=== PATIENT | female | born 1975 | race Caucasian/White ===

== ENCOUNTER 2022-09-29 16:13 | Emergency (ER) | payer MEDICAID, SELFPAY ==
[2022-09-29 16:17] VITALS: BP 143/110; PULSE 81; RESP 18; TEMP 36.6; O2SAT 95; BMI 24.7
--- NOTE | 2022-09-29 16:36 | EDS_ITS ---
HPI HPI - GI History of Present Illness Chief Complaint: Nausea/Vomiting/Diarrhea Informant: patient and spouse/S.O. Abdominal Pain/Flank Pain Onset: Today and Hours Timing: Continuous Current Severity: Moderate Maximum Severity: Moderate Worsened by: Nothing Relieved by: Nothing Nausea/Vomiting/Emesis GI Symptom: Positive for Nausea and Vomiting Onset: Today and Hours Severity: Moderate Diarrhea/Melena/Hematochezia GI Symptom: Positive for Diarrhea; Negative for Melena or Hematochezia Onset: Today Stool Quality: Positive for Watery Severity: Moderate Associated Symptoms Associated Symptoms: Negative for Dysuria, Frequency or Hematuria Narrative Narrative: 47-year-old female Breanna past medical history of than some anxiety. Her and her went out to eat last night. She had salmon. Thinks she may have gotten food poisoning. Ate around 8 PM last night. Today at 11 AM started having nausea, vomiting and diarrhea. did not have the same meal and has no symptoms and did not eat with anyone else to know if anyone else got ill. She denies any recent exposure to anyone's been sick with similar symptoms. States she is only having some mild cramping. No fever but some chills. States the diarrhea is watery. No blood. No dysuria. Her only prior abdominal surgery was for . Prior similar symptoms: No Recent Illness/Hospitalization: No PFSH PFSH Medical History Anxiety delivery delivered H/O thyroid nodule Home Medications buspirone 09/29/22 [History Last Taken Unknown] ondansetron 4 mg disintegrating tablet 4 mg PO Q6H PRN nausea and vomiting #7 tabs 09/29/22 [Rx Last Taken Unknown] Allergy/AdvReac Type Severity Reaction Status Date / Time No Known Allergies Allergy Verified 09/29/22 16:40 Social History Smoking Status: Never smoker ROS ROS ED ROS Narrative Nausea, vomiting and diarrhea. Review of Systems ROS Unobtainable: Denies due to encephalopathy Constitutional Constitutional ED: Reports chills and subjective; Denies fever(s) ENT ENT ED: Denies ear pain Cardiovascular Cardiovascular: Denies chest pain Respiratory/Chest Respiratory/Chest: Denies cough or dyspnea Gastrointestinal Gastrointestinal: Reports diarrhea, nausea and vomiting; Denies abdominal pain, constipation or melena Genitourinary Genitourinary ED: Denies dysuria or hematuria Musculoskeletal Musculoskeletal: Denies arthralgias Integumentary Denies abscess Neurologic Neurologic: Denies headache(s) Psychiatric Psychiatric: Denies anxiety Endocrine Endocrinology: Denies polydipsia Hematologic/Lymphatic Hematologic/Lymphatic: Denies easy bleeding Allergic/Immunologic Allergic/Immunologic ED: Denies mouth swelling or tongue swelling EXAM Physical Exam Narrative Exam Narrative: Well-appearing 47-year-old female. Vital signs are stable her blood pressure is 143/110. H EENT exam dry mucous membranes otherwise unremarkable. Neck nontender no JVD. No lymphadenopathy. Lungs clear to auscultation bilaterally. Heart regular rhythm rate about 80 no murmur. Abdomen soft, nontender, nondistended normal bowel sounds without any peritoneal signs. Right upper and right lower quadrants are unremarkable. No hernia or mass. No distention or signs of obstruction. Moving all 4 extremities. Back nontender. Neurologically she is awake and alert. Const Vital Signs: 09/29/22 16:17 09/29/22 17:28 Temperature 98 F Temperature Source Oral Pulse Rate 81 99 Respiratory Rate 18 16 Blood Pressure 143/110 H 107/72 Blood Pressure Mean 121 83 Pulse Ox 95 98 Oxygen Delivery Method Room Air Room Air Positive well nourished and well developed; Negative for obese, cachectic, contractures or unkempt General Appearance ED: well developed and NAD; Negative for unkempt, cachectic, contractures or pallor Nutritional Appearance: Negative for cachectic or obese HEENT Reports dry mucous membranes; Denies moist mucous membranes normocephalic and atraumatic; Negative for trauma or tenderness Mouth ED: Yes dry mucous membranes Mouth: dry mucous membranes Eyes PERRL and EOMs intact bilaterally General Eye ED: Negative for pale conjunctiva or scleral icterus Neck no lymphadenopathy, supple and no JVD General: Negative for tenderness Carotids: Negative for other Lymph Lymphatic: Negative for other Resp normal respiratory effort and clear to auscultation bilaterally Effort and Inspection: Negative for respiratory distress Auscultation: Negative for rales, rhonchi, wheezes or diminished lung sounds Cardio regular rate, regular rhythm, S1 normal heart sound, S2 normal heart sound and no murmurs Rate: Negative for bradycardia Rhythm: Negative for abnormal rhythm GI non-tender, non-distended and no masses Inspection: Negative for abdominal distention Auscultation: normoactive bowel sounds Palpation: soft; Negative for tender, guarding, rigid, hepatomegaly, splenomegaly, hernia, mass, pulsatile mass or rebound tenderness present Back/Spine no CVA tenderness General Back: Negative for CVA tenderness Cervical Spine: Negative for cervical spine tenderness Thoracic Spine / Upper Back: Negative for thoracic spinal tenderness Lumbar Spine / Lower Back: Negative for lumbar spinal tenderness Coccyx: Negative for other Extremity full ROM General Extremety ED: Negative for edema or tenderness General Extremity: Negative for edema Neuro CN's II-XII intact bilaterally, moves all extremities and no sensory deficits noted Sensorium / Orientation: alert, oriented to person, oriented to place and oriented to time; Negative for orientation impaired, confused, lethargic or stuporous Motor Exam: strength 5/5 throughout; Negative for general weakness or strength abnormal Psych mental status grossly normal and thought process normal Appearance: Negative for unkempt Attitude: No agitated Mood & Affect: Negative for depressed, anxious or tearful Skin no wounds General Skin Exam: Negative for jaundice or pallor Lesions: no lesions Rashes: no rashes Trauma: Negative for abrasion Nails: Negative for discolored MDM MDM MDM Narrative Medical decision making narrative: 47-year-old female with nausea vomiting diarrhea most likely viral gastroenteritis. Possibility of food poisoning. We treated with IV fluids. Zofran for nausea. I will obtain screening labs but her abdomen at this time is very benign. She does not need imaging. Clinically this is not acute cholecystitis nor appendicitis. Again there is no signs of obstruction. Repeat exam at 5:33 PM patient doing much better. Abdomen benign. No right upper or right lower quadrant tenderness. No distention. No peritoneal signs. She is clinically improving. Her blood pressures normal. Her nausea is resolving. She has been able to hold down ice chips. She be given 1/3 L of normal saline and ambulate if she does well she will be discharged home. This is either a viral gastroenteritis or food poisoning. Repeat exam patient is feeling somewhat better at 7 PM. She had a second dose of Zofran. 1/3 L normal saline. Currently her vital signs are stable. She got up out of bed and walk to the bathroom to urinate. She will be discharged home with Zofran. Treated for either viral gastroenteritis versus food poisoning. Lab Data Attestation: I reviewed the patient's lab results. Lab results narrative: CBC shows a white count of 15.8. H&H is 17.2 and 51.7. Electrolytes show potassium 3.4 gap of 12 BUN of 20 and creatinine 0.9. Glucose 163. Liver enzymes are unremarkable other than total bilirubin 1.2. Lipase is normal at 253. I suspect the white count is elevated and hemoglobin hematocrit due to dehydration with the nausea and diarrhea. Labs: Laboratory Results - last 24 hr 09/29/22 09/29/22 16:30 16:30 WBC 15.8 H RBC 5.99 H Hgb 17.2 H Hct 51.7 H MCV 86.3 MCH 28.7 MCHC 33.3 RDW Std Deviation 38.6 RDW Coeff of Makayla 12.2 Plt Count 318 MPV 10.3 Immature Gran % (Auto) 0.400 Neut % (Auto) 94.9 H Lymph % (Auto) 1.6 L [place] % (Auto) 2.7 Eos % (Auto) 0.1 Baso % (Auto) 0.3 Absolute Neuts (auto) 15.0 H Absolute Lymphs (auto) 0.26 L Nucleated RBC % 0 Differential Comment SCANNED Sodium 142 Potassium 3.4 L Chloride 105 Carbon Dioxide 25.0 Anion Gap 12 BUN 20 H Creatinine 0.92 Estim Creat Clear Calc 56.43 Est GFR (MDRD) Af Amer 84 Est GFR (MDRD) Non-Af 69 BUN/Creatinine Ratio 21.7 H Glucose 163 H Calcium 10.5 H Total Bilirubin 1.20 H AST 12 L ALT 30 Alkaline Phosphatase 66 Total Protein 8.5 H Albumin 5.0 Globulin 3.5 Albumin/Globulin Ratio 1.4 Lipase 253 Discharge Plan Triage Chief Complaint: Nausea/Vomiting/Diarrhea ED Provider: Rafi Odell Dx/Rx/DC Orders Clinical Impression: Viral gastroenteritis Instructions: ED Food Poisoning (Adult), ED Gastroenteritis, Viral (Adult) Prescriptions: New ondansetron 4 mg tablet,disintegrating 4 mg PO Q6H PRN (Reason: nausea and vomiting) Qty: 7 0RF No Action buspirone Primary Care Provider: Tia Pemberton Referrals: Tia Pemberton MD [Primary Care Provider] - 3-5 Days if not improving Activity Restrictions/Additional Instructions: Plenty of fluids and rest. Zofran as needed for nausea. Follow-up with your primary care provider if not improving return if worse. Disposition Disposition: Home, Self Care
[2022-09-29] MEDS: 0.9% Normal Saline 1,000 ML 1000 ML IV (16:41)
[2022-09-29 16:51] LABS: Absolute Lymphocyte Count 0.26 X10^3/uL (0.83-4.51); Basophil# 0.04 X10^3/uL; Basophil% 0.3 % (0-1); Eosinophil# 0.02 X10^3/uL; Eosinophils% 0.1 % (0-5); Hematocrit 51.7 % (37-47); Hemoglobin 17.2 g/dL (12.0-15.0); Lymphocyte # 0.26 X10^3/ul (0.83-4.51); Lymphocyte % 1.6 % (19-41); Mean Corp Hgb Conc 33.3 g/dL (32-36); Mean Corpuscular Hgb 28.7 pg (27.0-32.0); Mean Corpuscular Volume 86.3 fL (81-99); Mean Platelet Vol. 10.3 fl (6.2-12.0); Monocyte# 0.43 X10^3/uL; Monocyte% 2.7 % (0-10); NRBC Flagged by Analyzer 0 % (0-5); Neutrophil # 15.02 X10^3/uL (2.7-7.7); Neutrophil % 94.9 % (47-70); POSITIVE DIFFERENTIAL YES; Platelet Count 318 K/mm3 (150-450); RBC Distribution Width CV 12.2 % (11.6-14.6); RBC Distribution Width SD 38.6 fl (35.1-43.9); Red Blood Count 5.99 M/mm3 (4.2-5.4); White Blood Count 15.8 K/mm3 (4.4-11.0)
[2022-09-29 16:55] LABS: Differential Indicated SCAN CRITERIA MET
[2022-09-29 17:11] LABS: ALB/GLOB Ratio 1.4 RATIO (0.9-2.4); AST(SGOT) 12 U/L (15-37); Alanine Aminotransfer ALT/SGPT 30 U/L (13-56); Alkaline Phosphatase 66 U/L (45-117); Anion Gap 12 (5-15); BUN 20 mg/dL (7-18); BUN/Creat Ratio 21.7 RATIO (10-20); Calcium,Total 10.5 mg/dL (8.5-10.1); Chloride 105 mmol/L (98-107); Creatinine, Serum 0.92 mg/dL (0.55-1.02); EST Glomerular Filtration Rate 69 mL/min (>60); Est Glom Filt Rate - Afr Amer 84 mL/min (>60); Estimated Creatinine Clearance 56.43 ml/min; Globulin 3.5 g/dL (2.2-4.2); Glucose 163 mg/dL (74-106); Lipase 253 U/L (73-393); Potassium 3.4 mmol/L (3.5-5.1); Protein, Total 8.5 g/dL (6.4-8.2); Sodium Level 142 mmol/L (136-145)
[2022-09-29 17:14] LABS: Differential Comment SCANNED
[2022-09-29] MEDS: 0.9% Normal Saline 1,000 ML 999 ML IV (17:21)
[2022-09-29 17:28] VITALS: BP 107/72; PULSE 99; RESP 16; O2SAT 98
[2022-09-29] MEDS: Ondansetron 4 MG/2 ML Vial IV (18:02)
[2022-09-29 19:29] VITALS: BP 109/68; PULSE 95; RESP 16; TEMP 37.7; O2SAT 96
[2022-09-29 19:46] VITALS: BP 112/72; PULSE 91; RESP 18; O2SAT 95
== END 2022-09-29 19:47 | disposition home or self-care (01) ==
PROVIDERS: Emergency Provider Emergency Medicine; PCP Family Medicine; Visit Provider Emergency Medicine
DX: A08.4 Viral intestinal infection, unspecified (principal)
CPT/HCPCS: 80053; 83690; 85025; 96361; 96374; 99285; J7030; J2405